=== PATIENT | male | born 1990 | race Two or more races ===

== ENCOUNTER 2024-06-27 12:54 | Emergency (ER) | payer MEDICAID, SELFPAY ==
[2024-06-27 13:15] VITALS: BP 146/92; PULSE 108; RESP 20; TEMP 36.8; O2SAT 97; BMI 36.2
--- NOTE | 2024-06-27 13:34 | XR_ITS ---
Examination: CT abdomen and pelvis without contrast. Coronal 3-D reconstructions. Sagittal 2-D reconstructions. Date and time of exam:June 27, 2024 at 1521 hours INDICATIONS: Bilateral back and flank pain today CTDI: vol (mGy): 10.9 DLP: (mGycm): 691 Technique: Axial images of the abdomen have been obtained, 3 mm slice thickness Intravenous contrast material has not been administered. Low dose protocols were performed. One or more of the following dose reduction techniques were used; automated exposure control, adjustment of the mA and/or KV according to patient size, use of iterative reconstruction technique. Findings: Hyperdense 10 mm focus right lobe the liver Fatty infiltration throughout the liver Spleen not enlarged No pancreatic mass 12 mm fat-containing left adrenal nodule No renal or ureteral calculi, no hydronephrosis No bowel obstruction Normal appendix No bladder mass or bladder calculi No pelvic mass IMPRESSION: 10 mm hyperdense focus right lobe the liver, recommend hepatic sonography follow-up 10 mm fat-containing left adrenal nodule No renal or ureteral calculi, no hydronephrosis Normal appendix
[2024-06-27] MEDS: DIAZEPAM 5 MG TABLET 10 MG PO (13:43)
[2024-06-27] MEDS: KETOROLAC INJ 30 MG/ML VIAL IM (13:43)
[2024-06-27 14:28] LABS: Basophils # (Auto) 0.1 Thou/mm3 (0.0-0.2); Basophils % (Auto) 1 % (0-2.5); Eosinophils # (Auto) 0.4 Thou/mm3 (0.0-0.5); Eosinophils % (Auto) 3 % (0-10); Hematocrit 48.9 % (41.0-53.0); Hemoglobin 16.4 g/dL (13.5-16.0); Immature Granulocytes % (Auto) 1 % (0-0); Immature Granulocytes Auto 0.14 Thou/mm3 (0.00-0.00); Lymphocytes # (Auto) 3.2 Thou/mm3 (1.0-4.8); Lymphocytes % (Auto) 27 % (10-50); Mean Corpuscular HGB Conc 33.5 g/dl (31.0-37.0); Mean Corpuscular Hemoglobin 26.8 pg (25.0-35.0); Mean Corpuscular Volume 80 fL (80-100); Monocytes # (Auto) 1.2 Thou/mm3 (0.0-0.8); Monocytes % (Auto) 11 % (0-12); Neutrophils # (Auto) 6.7 Thou/mm3 (1.8-7.7); Neutrophils % (Auto) 57 % (37-80); Nucleated Red Blood Cell % 0 /100 WBC (0); Platelet Count 315 Thou/mm3 (140-440); RDW Standard Deviation 41.7 fL (35.1-43.9); Red Blood Count 6.11 Miln/mm3 (4.50-5.90); White Blood Count 11.7 Thou/mm3 (3.8-10.6)
[2024-06-27 14:44] LABS: Alanine Aminotransferase 47 U/L (10-49); Albumin, Serum 4.5 gm/dL (3.5-5.0); Albumin/Globulin Ratio 1.6 (1.2-2.2); Alkaline Phosphatase 108 U/L (46-116); Anion Gap 7 (7-16); Aspartate Amino Transferase 26 U/L (0-34); BUN/Creatinine Ratio 17 Ratio (12-20); Bilirubin,Total 0.4 mg/dL (0.3-1.2); Blood Urea Nitrogen 10 mg/dL (9-23); Calcium 9.5 mg/dL (8.3-10.6); Calcium (Corrected) 9.5 mg/dL (8.5-10.1); Carbon Dioxide 28.7 mMol/L (20.0-31.0); Chloride 103 mMol/L (98-107); Creatinine (Component) 0.6 mg/dL (0.6-1.3); Estimated Creatinine Clearance 226.6 mL/min (>60); Globulin 2.9 gm/dL (2.3-3.5); Glucose 119 mg/dL (74-106); Lipase 34 U/L (12-53); Osmolality,Calculated 277 (275-295); Potassium 4.1 mMol/L (3.4-5.1); Sodium 139 mMol/L (136-145); Total Protein 7.4 gm/dL (5.7-8.2); eGFR > 60 See Note
[2024-06-27 16:30] LABS: Collection Type, Urine Clean Catch
--- NOTE | 2024-06-27 16:32 | XR_ITS ---
Examination: Abdomen sonogram, Limited Date and time of exam: June 27, 2024 1640 hours INDICATIONS: 10 mm lesion right lobe the liver on CT abdomen pelvis study today, right flank pain 2 days Technique: Real-time ramesh scale transabdominal sonographic images of the upper abdomen obtained. Findings: Normal gallbladder Normal common bile duct Pancreatic head 2.4 cm Liver 19.9 cm fatty infiltration no liver lesion noted Normal hepatopedal portal venous flow Patent IVC IMPRESSION: No liver lesion noted, recommend repeat CT abdomen with contrast in 3-6 months
--- NOTE | 2024-06-27 16:36 | PD.EDRME ---
Rapid Medical Screening Exam RME Arrival date/time: 06/27/24 12:54 33-year-old male presents emergency dept with complaints of abdominal pain and back pain Chief Complaint: Back Pain/Injury Time Seen by Provider: 06/27/24 13:12 Vital signs: Vital Signs Temperature 98.3 F 06/27/24 13:15 Pulse Rate 108 H 06/27/24 13:15 Respiratory Rate 20 06/27/24 13:15 Blood Pressure 146/92 H 06/27/24 13:15 Pulse Oximetry (%) 97 06/27/24 13:15 Oxygen Delivery Method Room Air 06/27/24 13:15
[2024-06-27 16:55] LABS: Bacteria,Urine Rare; Bilirubin,Urine Negative (Negative); Blood,Urine Negative (Negative); Clarity,Urine Turbid (Clear/Hazy); Color,Urine Yellow (Lt Yel-Yel); Glucose, Urine Negative (Negative); Ketones,Urine Negative (Negative); Leukocyte Esterase,Urine Positive (Negative); Nitrite,Urine Negative (Negative); Protein,Urine 1+ (Neg - Trace); RBC,Urine 12 /hpf (0-3); Specific Gravity,Urine 1.032 (1.001-1.035); Squamous Epithelial Cell,Urine 5 /hpf (0-5); WBC,Urine 91 /hpf (0-5)
[2024-06-27 17:04] LABS: Culture Indicated,Urine Yes
[2024-06-27 17:25] VITALS: BP 137/87; PULSE 100; RESP 19; TEMP 37.2; O2SAT 98
--- NOTE | 2024-06-27 19:04 | PD.EDBACK ---
ED Back Injury Pain RME/HPI General Chief Complaint: Back Pain/Injury Stated Complaint: Right lower back/flank pain Time Seen by Provider: 06/27/24 13:12 Source: patient Arrival date/time: 06/27/24 12:54 33-year-old male presents emergency department complaining of left sided back pain that radiates down towards his left leg that has been ongoing since this past April. Patient reports pain has worsened the last couple days. Patient reports his standing for long periods of time at his job. Patient reports pain worsens when he sits down and improves with movement. Patient denies any fever, chills, vomiting, bowel or bladder dysfunction, saddle anesthesia, or any other associated symptom. Mode of arrival: ambulatory Limitations: no limitations RME / HPI RME / HPI Narrative: 06/27/24 12:54 33-year-old male presents emergency dept with complaints of abdominal pain and back pain Related Data Previous Rx's ?Medication ?Instructions ?Recorded ciprofloxacin HCl 250 mg tablet 250 mg PO BID 3 days #6 tabs 06/27/24 (Cipro) cyclobenzaprine 10 mg tablet 10 mg PO TID PRN muscle spasm #10 06/27/24 tabs ibuprofen 600 mg tablet 600 mg PO Q8H PRN pain #20 tabs 06/27/24 Allergies Allergy/AdvReac Type Severity Reaction Status Date / Time No Known Allergies Allergy Verified 06/27/24 13:00 Review of Systems Review of Systems Systems Reviewed: All systems reviewed, normal except as documented Constitutional Constitutional: Reports system reviewed and no additional complaints, except as documented, Denies body ache(s), Denies chills and Denies fever(s) Eyes Eyes: Reports system reviewed and no additional complaints, except as documented and Denies change in vision ENT Ears, Nose, Mouth, and Throat: Reports system reviewed and no additional complaints, except as documented, Denies disequilibrium, Denies dizziness, Denies sore throat and Denies vertigo Cardiovascular Cardiovascular: Reports system reviewed and no additional complaints, except as documented, Denies chest pain and Denies dyspnea Respiratory Respiratory: Reports system reviewed and no additional complaints, except as documented, Denies chest congestion, Denies cough and Denies dyspnea Gastrointestinal Gastrointestinal: Reports system reviewed and no additional complaints, except as documented, Denies abdominal pain, Denies nausea and Denies vomiting Musculoskeletal Musculoskeletal: Reports system reviewed and no additional complaints, except as documented, Denies abnormal gait, Denies arthralgias and Reports back pain Integumentary/Breasts Skin/Breast: Reports system reviewed and no additional complaints, except as documented, Denies erythema, Denies rash and Denies wounds Neurologic Neurologic: Reports system reviewed and no additional complaints, except as documented, Denies abnormal gait, Denies disequilibrium, Denies dizziness and Denies vertigo Past Medical History Social History SMOKING STATUS: Former smoker ED Exam General Limitations: Present no limitations General appearance: Present alert and in no apparent distress Head Head exam: Present atraumatic Eye Eye exam: Present normal appearance, PERRL and EOMI ENT ENT exam: Present normal exam, normal oropharynx and mucous membranes moist Neck Neck exam: Present normal inspection, full ROM and trachea midline Chest Chest inspection: Present normal inspection and symmetric chest wall rise Respiratory Respiratory exam: Present normal lung sounds bilaterally Cardiovascular Cardiovascular exam: Present regular rate, normal rhythm and normal heart sounds Abdominal Exam Abdominal exam: Present soft and normal bowel sounds Extremities Exam Extremities exam: Present normal inspection and full ROM Back Exam Back exam: Present normal inspection, full ROM and straight leg raise (L); Absent CVA tenderness (R) or CVA tenderness (L) Neurological Exam Neurological exam: Present alert, oriented X3 and CN II-XII intact Psychiatric Psychiatric exam: Present normal affect and normal mood Skin Skin exam: Present warm, dry, intact and normal color Course Quality Measures none Orders Category Date Time Status CT abdomen pelvis wo con Stat Exams 06/27/24 13:34 Completed US liver Stat Exams 06/27/24 16:32 Completed CBC Stat Lab 06/27/24 14:10 Completed Comprehensive Metabolic Panel Stat Lab 06/27/24 14:10 Completed Lipase Stat Lab 06/27/24 14:10 Completed UA, C/S IF [Urinalysis, C/S if Indicated] Stat Lab 06/27/24 16:26 Completed Urine Culture Stat Lab 06/27/24 16:26 Received Diazepam [Valium] Med 06/27/24 13:34 Discontinued 10 mg PO X1 ONE Ketorolac Inj [Toradol Inj] Med 06/27/24 13:34 Discontinued 30 mg IM X1 ONE cefTRIAXone [Rocephin] 1,000 mg Med 06/27/24 19:05 Discontinued Lidocaine 1% 20 ml [Xylocaine 1% 20 ML] 2.1 ml IM X1 Vital Signs Vital signs: Vital Signs Temperature 98.3 F 06/27/24 13:15 Pulse Rate 108 H 06/27/24 13:15 Respiratory Rate 20 06/27/24 13:15 Blood Pressure 146/92 H 06/27/24 13:15 Pulse Oximetry (%) 97 06/27/24 13:15 Oxygen Delivery Method Room Air 06/27/24 13:15 97% room air within normal limits Back Pain / Injury MDM Narrative MDM Narrative:: 33-year-old male presents emergency department complaining of left sided back pain that radiates down towards his left leg that has been ongoing since this past April. Patient reports pain has worsened the last couple days. Patient reports his standing for long periods of time at his job. Patient reports pain worsens when he sits down and improves with movement. Patient denies any fever, chills, vomiting, bowel or bladder dysfunction, saddle anesthesia, or any other associated symptom. Patient reports significant improvement in pain after given medication. CBC mild leukocytosis 11.7. CMP was unremarkable for any elevated LFTs and normal lipase. Urinalysis consistent with urinary tract infection will treat with IM Rocephin and discharged on oral antibiotic. CT scan of abdomen was unremarkable other than possible liver lesion which was then not seen after ultrasound was done. On exam patient left leg raise positive Dennison's punch to left and right flank was negative. Patient likely has sciatica pain. Discussed with patient lab results and CT and ultrasound findings. Instructed patient to have follow-up with primary care provider return to emergency department for any worsening symptoms or as needed. Patient data External records reviewed:: None Clinical information provided by:: patient Social determinants that could affect healthcare access:: none Patient has the following chronic illnesses:: None How is presenting disease/condition affected by chronic disease/condition?: no chronic disease Evaluation data The following diagnostics were reviewed and interpreted by me:: lab results and radiology exam(s) Lab and/or radiology exams considered but not ordered:: Ordered Interpretation Summary: Interpreted by me Medications / Prescriptions Medications or Prescriptions considered but not ordered:: Ordered Medication administrations:: Medication Administration History Discontinued Medications Ceftriaxone Sodium 1,000 mg/ (Lidocaine HCl 2.1 ml) 0 mg IM X1 ONE Stop: 06/27/24 19:06 Last Admin: 06/27/24 19:16 Dose: 1,000 mg Documented By: OA Diazepam (Diazepam 5 Mg Tablet) 10 mg PO X1 ONE Stop: 06/27/24 13:35 Last Admin: 06/27/24 13:43 Dose: 10 mg Documented By: OA Ketorolac Tromethamine (Ketorolac Inj 30 Mg/Ml Vial) 30 mg IM X1 ONE Stop: 06/27/24 13:35 Last Admin: 06/27/24 13:43 Dose: 30 mg Documented By: OA Given Consultations Consultation(s) initiated? (list below): No Diagnosis Differential diagnosis back pain/injury: lumbar radiculopathy, sciatica, strain of lumbar region, renal colic, pyelonephritis, thoracic back pain, AAA and discitis Most likely diagnosis given after review of the tests above:: Sciatica UTI Admission Indicated Admission indicated?: not indicated Admission Request Was there a request for admission?: No Disposition Plan Disposition Plan: Discharge Discharge Attestation Discharge Attestation: The patient and all family members were given an opportunity to ask questions and understood the discharge instructions. Discharge instructions specifically effects, indications for sooner follow up or return to the emergency department, and the expected course of current diagnosis. Patient condition: Stable Discharge Plan Plan Patient Disposition: HOME (Self Care) Disposition Comment: Stable Prescriptions/Referrals Prescriptions/Med Rec: New cyclobenzaprine 10 mg tablet 10 mg PO TID PRN (Reason: muscle spasm) Qty: 10 0RF ciprofloxacin HCl [Cipro] 250 mg tablet 250 mg PO BID 3 Days Qty: 6 0RF ibuprofen 600 mg tablet 600 mg PO Q8H PRN (Reason: pain) Qty: 20 0RF Referrals: Mauri Mark [Primary Care Provider] - In 1 week Problem List Clinical Impression: Sciatica, UTI (urinary tract infection) Patient/Caregiver Discharge Instructions Discharge Activity: activity as tolerated Education Materials: ED Sciatica, ED Bladder Infection, Male (Adult) Additional Instructions: Take ibuprofen and muscle relaxer as prescribed for pain. Drink plenty of fluids and get plenty of rest. Follow-up with primary care provider in 2 to 3 days and as for referral to physical therapy if symptoms persist. Complete antibiotics as prescribed. Return to emergency department for any worsening symptoms or as needed. Print Language: [place] Stand Alone Forms: Lesley Award Info., Work/School Release, Patient Portal Info Letter NIDIA/ALEXANDRU Supervising Physician NIDIA/ALEXANDRU Supervising Physician: Dr. Sykes
[2024-06-27] MEDS: cefTRIAXone 1,000 MG, LIDOCAINE 1% 20 ML 2.1 ML IM (19:16)
== END 2024-06-27 19:28 | disposition home or self-care (01) ==
PROVIDERS: Nurse Practitioner Primary Care; Emergency Provider Emergency Medicine
DX: M54.42 Lumbago with sciatica, left side (principal); N39.0 Urinary tract infection, site not specified
CPT/HCPCS: 36415; 74176; 76705; 80053; 81001; 83690; 85025; 87077; 87086; 87186; 96372; 99284; J0696; J1885; J3490; A9270